=== PATIENT | female | born 1990 | race Caucasian/White ===

== ENCOUNTER 2019-07-06 11:27 | Emergency (ER) | payer SELFPAY ==
[~2019-07-06] VITALS: Ht 175.3 cm; Wt 78.0 kg
[2019-07-06 13:13] LABS: CLARITY URINE CLOUDY (CLEAR); COLOR URINE YELLOW (YELLOW); KETONES URINE NEGATIVE (NEGATIVE); LEUKOCYTE ESTERASE URINE 2+ (NEGATIVE); NITRITE URINE NEGATIVE (NEGATIVE); OCCULT BLOOD URINE 2+ (NEGATIVE); PROTEIN URINE 2+ (NEGATIVE)
[2019-07-06] MEDS ORDERED: FLUCONAZOLE 100MG TABLET PO ONE (13:45)
[2019-07-06] MEDS ORDERED: CEFTRIAXONE SODIUM 1 G/VIAL IM ONE (13:45)
[2019-07-06] MEDS ORDERED: AZITHROMYCIN 500 MG TABLET PO ONE (13:45)
[2019-07-06] MEDS ORDERED: FLUCONAZOLE 150MG TABLET PO NR (14:15)
[2019-07-06 14:33] VITALS: BP 121/76
[2019-07-08 08:07] LABS: CHLAMYDIA TRACHOMATIS NAA Negative (Negative); NEISSERIA GONORRHOEAE NAA Negative (Negative)
== END 2019-07-06 14:34 | disposition home or self-care (01) ==
LOC: ER 11:34
DX: A64 Unspecified sexually transmitted disease (principal); F15.10 Other stimulant abuse, uncomplicated; F17.210 Nicotine dependence, cigarettes, uncomplicated; Z98.890 Other specified postprocedural states
CPT/HCPCS: 81003; 81025; 87086; 87210; 87491; 87591; 96372; 99283; 99406; J0696; Z7610

== ENCOUNTER 2019-07-10 11:42 | Emergency (ER) | payer OTHER ==
[~2019-07-10] VITALS: Ht 175.3 cm; Wt 77.0 kg
[2019-07-10] MEDS ORDERED: LEVOFLOXACIN 250MG TABLET PO ONE (22:30)
[2019-07-10 22:54] VITALS: BP 108/59
== END 2019-07-10 23:18 | disposition home or self-care (01) ==
LOC: ER 11:42
DX: N39.0 Urinary tract infection, site not specified (principal); F19.10 Other psychoactive substance abuse, uncomplicated
CPT/HCPCS: 99283